=== PATIENT | male | born 1980 | race Hispanic/Latino ===

== ENCOUNTER 2017-09-18 20:29 | Emergency (ER) | payer OTHER ==
[2017-09-18 20:32] VITALS: BP 144/81; PULSE 68; RESP 16; TEMP 97.1; O2SAT 96
--- NOTE | 2017-09-18 20:38 | ED PDOC ---
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 Denies any complaints. No bodily injury noted. Denies any tachycardia/sob.) Past Medical History Reviewed: Historical Data, Nursing Documentation, Vital Signs Vital Signs: Last Vital Signs Temp 97.1 F L 09/18/17 20:30 Pulse 68 09/18/17 20:30 Resp 16 09/18/17 20:30 BP 144/81 09/18/17 20:30 Pulse Ox 96 09/18/17 20:30 - Family History Family History: States: No Known Family Hx - Allergies Allergies/Adverse Reactions: Allergies Allergy/AdvReac Type Severity Reaction Status Date / Time No Known Allergies Allergy Verified 09/18/17 20:32 Review of Systems ROS Statement: Except As Marked, All Systems Reviewed And Found Negative Physical Exam - Reviewed Nursing Documentation Reviewed: Yes Vital Signs Reviewed: Yes - Physical Exam Appears: Positive for: Well, Non-toxic, No Acute Distress Head Exam: Positive for: ATRAUMATIC, NORMAL INSPECTION, NORMOCEPHALIC Skin: Positive for: Normal Color, Warm, DRY Eye Exam: Positive for: EOMI, Normal appearance, PERRL ENT: Positive for: Normal ENT Inspection Neck: Positive for: Normal, Painless ROM Cardiovascular/Chest: Positive for: Regular Rate, Rhythm Respiratory: Positive for: CNT, Normal Breath Sounds Gastrointestinal/Abdominal: Positive for: Normal Exam, Bowel Sounds, Soft Back: Positive for: Normal Inspection Extremity: Positive for: Normal ROM Neurologic/Psych: Positive for: Alert, Oriented - ECG O2 Sat by Pulse Oximetry: 96 Disposition - Clinical Impression Clinical Impression: General medical exam - Patient ED Disposition Is Patient to be Admitted: No - Disposition Disposition: Routine/Home Disposition Time: 20:38 Condition: FAIR Additional Instructions: PATIENT IS MEDICALLY CLEARED TO RETURN TO WORK. Instructions: Normal Exam (ED)
== END 2017-09-18 20:51 | disposition home or self-care (01) ==
LOC: H.ER 20:29
DX: Z00.00 Encounter for general adult medical examination without abnormal findings (principal); Z02.89 Encounter for other administrative examinations